=== PATIENT | male | born 1985 | race Two or more races ===

== ENCOUNTER 2021-08-28 02:16 | Emergency (ER) | payer OTHER ==
[~2021-08-28] VITALS: Ht 172.7 cm; Wt 79.4 kg
[2021-08-28 02:27] VITALS: BP 151/87
--- NOTE | 2021-08-28 02:49 | NUR ---
TPT IS CLEARED FOR BOOKING UNDER THE CARE OF [employer] OFFICERES. PT IS AMBULATORY ON STYEADY GAIT. PT LEFT WITH 2 OFFICERS ON STABLE CONDITION.
== END 2021-08-28 02:51 ==
LOC: ER 02:23
DX: F10.129 Alcohol abuse with intoxication, unspecified (principal); F41.9 Anxiety disorder, unspecified; I10 Essential (primary) hypertension; Z60.2 Problems related to living alone; Y90.9 Presence of alcohol in blood, level not specified